=== PATIENT | male | born 1945 | race Caucasian/White ===

== ENCOUNTER 2017-11-07 14:59 | Emergency (ER) | payer OTHER ==
[~2017-11-07] VITALS: Ht 185.4 cm; Wt 96.2 kg
--- NOTE | ~2017-11-07 | EKG ---
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1945 Requested By: Jed Orta Order Number: [id number] MD: Jason Fregoso Measurements Intervals [place] Rate: 83 P: 33 [place]: 155 QRS: -50 QRSD: 103 T: 32 QT: 382 QTc: 449 Interpretive Statements Sinus rhythm Atrial premature complex Left anterior fascicular block Compared to ECG 08/11/2006 06:50:24 atrial premature complex(es) now present Electronically Signed On 11-08-2017 18:49:57 CDT by Jason Fregoso [email or web address] <ELECTRONICALLY SIGNED> By: Jason Fregoso MD, [facility] 11/08/17 1849 15 15 Jason Fregoso MD, [facility] /EPI
[~2017-11-07 14:59] MED LIST: CARVEDILOL6.25 MG PO; LISINOPRIL40 MG PO
[2017-11-07] MEDS ORDERED: FLOMAX0.4 MG PO (15:25)
[2017-11-07 15:31] LABS: ABSOLUTE NEUTROPHILS 6.1 thou/uL (1.4-8.2); BASOPHILS 0.3 % (0.0-2.0); EOSINOPHILS 2.4 % (0.0-3.0); HEMATOCRIT 43.1 % (42.0-52.0); HEMOGLOBIN 14.7 gm/dL (14.0-18.0); LYMPHOCYTES 20.5 % (24.0-44.0); MCH 31.2 pg (26.0-34.0); MCV 91.8 fL (80.0-100.0); MONOCYTES 11.4 % (1.0-8.0); PLATELET COUNT 280 thou/uL (150-400); POLYS 65.4 % (36.0-66.0); RBC 4.69 mil/uL (4.50-6.00); RDW 13.5 % (10.5-14.5); WBC 9.3 thou/uL (4.0-11.0)
[2017-11-07 15:38] LABS: ANION GAP 12 mmol/L (7-16); BUN 15 mg/dL (7-18); CALCIUM 8.9 mg/dL (8.5-10.1); CHLORIDE 101 mmol/L (98-107); CO2 24 mmol/L (21-32); GLUCOSE 101 mg/dL (74-106); SODIUM 137 mmol/L (136-145)
[2017-11-07 15:44] LABS: INR 1.1; PROTIME 11.3 Seconds (9.3-11.4)
[2017-11-07 15:46] LABS: ALBUMIN 3.1 g/dL (3.4-5.0); SGOT 15 U/L (15-37); SGPT 23 U/L (30-65); TOTAL BILIRUBIN 0.7 mg/dL (<0.1-1.0); TOTAL PROTEIN 7.1 g/dL (6.4-8.2); TROPONIN-I <0.06 ng/mL (<0.06)
[2017-11-07 16:16] LABS: URINE BILIRUBIN NEGATIVE (Negative); URINE BLOOD 2+ (Negative); URINE CLARITY CLOUDY; URINE COLOR YELLOW; URINE GLUCOSE-RANDOM* NEGATIVE (Negative); URINE KETONES NEGATIVE (Negative); URINE LEUKOCYTES 3+ (Negative); URINE NITRITE POSITIVE (Negative); URINE PROTEIN (DIPSTICK) 1+ (Negative); URINE SPECIFIC GRAVITY 1.015 (1.005-1.035)
[2017-11-07 16:23] LABS: AMP/METHAMP Negative (Negative); BARBITURATES Negative (Negative); BENZODIAZEPINES Negative (Negative); COCAINE Negative (Negative); METHADONE Negative (Negative); OPIATES Negative (Negative); PCP Negative (Negative)
[2017-11-07 16:45] LABS: CASTS None Seen /LPF (None Seen); CRYSTALS None Seen /LPF (None Seen); SQUAMOUS None Seen /LPF (0-3); URINE WBC >25 Many /HPF (0-5)
[2017-11-07 16:46] LABS: URINE RBC 3-10 Few /HPF (0-2)
[2017-11-07 21:30] VITALS: BP 123/66
== END 2017-11-07 21:30 | disposition short-term general hospital (02) ==
LOC: ER 14:59 → EROBS 15:53 → ER 15:53 → EROBS 21:30
PROVIDERS: Emergency Medicine
DX: R53.1 Weakness (principal); R29.810 Facial weakness; R47.1 Dysarthria and anarthria; F17.210 Nicotine dependence, cigarettes, uncomplicated; Z95.5 Presence of coronary angioplasty implant and graft